=== PATIENT | female | born 1985 | race Caucasian/White ===

== ENCOUNTER → 2019-10-02 12:56 | Outpatient (CLI) | payer BC, SELFPAY ==
--- NOTE | ~2019-10-02 | US_ITS ---
EXAMINATION: US OB transvaginal DATE: 10/02/2019 13:32 INDICATION: First trimester dating TECHNIQUE: Real-time pelvic transabdominal and transvaginal ultrasound was performed. COMPARISON: None. FINDINGS: The uterus measures 9.6 x 6.3 x 6.8 cm. Again A yolk sac is identified. heart motion is identified measuring 163 beats per minute (bpm) by M-mode Doppler. The crown rump length me asures 1.7 cm , which correlates with an estimated gestational age of 8 weeks and 1 day(s) (+/-) 5 da y(s). The right ovary measures 3.2 x 2.0 x 3.0 cm. The left ovary measures 4.0 x 2.2 x 2.7 cm. There is nor mal vascular flow in the ovaries. There is no free fluid in the pelvis. IMPRESSION: 1. Live intrauterine with an estimated gestational age of 8 weeks and 1 day(s) (+/-) 5 day( s) and an estimated delivery date of 05/12/2020. Reviewed, dictated and finalized at location A. IMPRESSION: 1. Live intrauterine with an estimated gestational age of 8 weeks and 1 day(s) (+/-) 5 day(s) and an estimated delivery date of 05/12/2020.
== END ==
PROVIDERS: Visit Provider Obstetrics & Gynecology Gynecology
DX: Z36.9 Encounter for antenatal screening, unspecified (principal); Z3A.08 8 weeks gestation of pregnancy
CPT/HCPCS: 76817

== ENCOUNTER → 2019-12-14 15:32 | Outpatient (CLI) | payer BC, SELFPAY ==
--- NOTE | ~2019-12-14 | US_ITS ---
EXAMINATION: US OB >= 14 weeks Fetus DATE: 12/14/2019 16:10 INDICATION: Second trimester anatomic survey TECHNIQUE: Real-time ultrasound of the pelvis was performed. COMPARISON: None. FINDINGS: There is a single living fetus in vertex presentation. The placenta is anterior/fundal. heart r ate is 156 beats per minute (bpm). cardiac activity and movement are noted. The amniotic fluid index is subjectively normal. The following anatomy was identified as normal: 4 chamber heart 3 vessel cord cord insertion kidneys urinary bladder stomach spine diaphragm ventricles cisterna magna cerebellum The following biometric data were obtained: Biparietal diameter (BPD): 4.2 cm; head circumference (HC): 15.7 cm; abdominal circumference (AC): 13 .0 cm; femur length (FL): 2.7 cm. These measurements are concordant. Estimated weight is 241 g +/- 36 g, which correlates with the 40th percentile when 05/12/2020 is used as estimated date of delivery. As single measurements, these parameters are each equal to the following estimated gestational ages w ith ranges of +/- 2 standard deviations: BPD: 19 weeks 0 days ( 17 weeks 2 days - 20 weeks 5 days). HC: 18 weeks 4 days ( 17 weeks 1 days - 20 weeks 1 days). AC: 18 weeks 4 days ( 16 weeks 3 days - 20 weeks 4 days). FL: 18 weeks 2 days ( 16 weeks 4 days - 20 weeks 1 days). estimated gestational age based solely on measurements from this exam is 18 weeks 4 days +/- 1 weeks 2 days. IMPRESSION: 1. Single living fetus in vertex presentation. 2. Estimated weight is 241 g +/- 36 g, which correlates with the 40th percentile when 05/12/2020 is used as estimated date of delivery. Reviewed, dictated and finalized at location A. IMPRESSION: 1. Single living fetus in vertex presentation. 2. Estimated weight is 241 g +/- 36 g, which correlates with the 40th per centile when 05/12/2020 is used as estimated date of delivery.
== END ==
PROVIDERS: PCP Family Medicine; Visit Provider Nurse Practitioner
DX: Z36.9 Encounter for antenatal screening, unspecified (principal)
CPT/HCPCS: 76805

== ENCOUNTER 2020-02-15 09:01 | Outpatient (NON) | payer BC, SELFPAY ==
[2020-02-15 20:01] LABS: SARS-CoV-2 RNA PCR Negative
== END 2020-02-15 09:02 ==
PROVIDERS: PCP Family Medicine; Visit Provider Obstetrics & Gynecology Gynecology
DX: R68.89 Other general symptoms and signs (principal); Z20.828 Contact with and (suspected) exposure to other viral communicable diseases
CPT/HCPCS: 87635; C9803; U0003

== ENCOUNTER 2020-03-10 11:57 | Emergency (ER) | payer BC, SELFPAY ==
--- NOTE | ~2020-03-10 | XR_ITS ---
EXAMINATION: XR chest 1V portable DATE: 03/10/2020 13:15 INDICATION: Cough. TECHNIQUE: A single frontal view of the chest was obtained. COMPARISON: None. FINDINGS: The chest demonstrates clear lungs without pneumonia, pleural effusion, or pneumothorax. Th e heart size is normal. IMPRESSION: 1. No acute cardiopulmonary disease. Reviewed, dictated and finalized at location A. TRICAL LINESWORKER
[2020-03-10 12:04] VITALS: BP 114/74; PULSE 86; RESP 18; TEMP 36.7; O2SAT 100
--- NOTE | 2020-03-10 12:19 | ECG_ITS ---
Measurements Intervals [place] Rate: 81 P: 28 MO: 141 QRS: 61 QRSD: 86 T: 29 QT: 347 QTc: 404 Interpretive Statements SINUS RHYTHM NORMAL ECG Electronically Signed On 03-10-2020 12:42:59 HUC by Patrice Brewster D.O.
[2020-03-10 12:20] VITALS: BP 113/76; PULSE 85; RESP 18; O2SAT 100
[2020-03-10 12:25] VITALS: BP 106/66; BP 113/68; PULSE 86; PULSE 99
[2020-03-10 12:26] VITALS: BP 107/66; PULSE 87
[2020-03-10] MEDS: SODIUM CHLORIDE 0.9% IV 1,000 ML 999 ML IV CONT (13:02)
[2020-03-10 13:14] LABS: Basophils Percent Auto 0.3 % (0.2-1.2); Eosinophils Percent Auto 0.5 % (0-4.4); Hematocrit 31.5 % (37.0-47.0); Hemoglobin 10.5 g/dL (12.0-15.0); Immature Granulocyte Absolute 0.05 K/mm3 (0.00-0.031); Immature Granulocyte Percent A 0.6 % (0-0.5); Lymphocytes Absolute Auto 1.48 K/mm3 (0.9-3.2); Lymphocytes Percent Auto 16.9 % (18.3-44.2); Mean Corpuscular HGB Conc 33.3 g/dl (32-36); Mean Corpuscular Hemoglobin 31.6 pg (26-34); Mean Corpuscular Volume 94.9 fl (80-100); Mean Platelet Volume 10.1 fl (7.4-10.4); Monocytes Absolute Auto 0.6 K/mm3 (0.1-0.6); Monocytes Percent Auto 6.7 % (2.6-8.5); Neutrophils Absolute Auto 6.6 K/mm3 (1.3-6.7); Platelet Count Result 171 k/mm3 (150-375); Red Blood Count 3.32 M/mm3 (4.2-5.4); Red Cell Distribution Width 12.5 % (11.5-14.5); White Blood Count 8.8 K/mm3 (4.5-10.0)
[2020-03-10 13:32] LABS: Anion Gap 2 mmol/L (8-16); Blood Urea Nitrogen 8 mg/dL (7-17); Calcium 8.3 mg/dL (8.4-10.2); Carbon Dioxide 26 mmol/L (22-30); Chloride 105 mmol/L (98-107); Estimated CRCL calculation 116 ml/min; Estimated Glomerular Filt Rate > 60; Glucose 102 mg/dL (65-105); Potassium 4.1 mmol/L (3.4-5.0); Sodium 133 mmol/L (137-145)
[2020-03-10 13:42] VITALS: BP 107/61; PULSE 80; RESP 18; O2SAT 100
[2020-03-10 14:34] LABS: Add Urine Microscopic? NO; Appearance Urine Clear (Clear); Bacteria Urine Trace /hpf; Bilirubin Urine Negative (Negative); Blood Urine Negative (Negative); Color Urine Straw (Yellow); Glucose Urine UA Negative (Negative); Ketones Urine Negative (Negative); Leukocyte Esterase Ur Negative LEU/UL (Negative); Nitrate Urine Negative (Negative); Protein Urine Negative (Negative); RBC Urine 0-2 /hpf (0-2); Specific Grav Ur 1.005 (1.001-1.035); Squamous Epithelial Cell Urine Many /hpf (Few); Urobilinogen Urine Negative mg/dL (<2.0); WBC Urine 0-3 /hpf
[2020-03-10 14:40] VITALS: BP 97/67; PULSE 81; RESP 20; O2SAT 100
--- NOTE | 2020-03-10 15:23 | ED.GENADULT ---
HPI - General Adult General Chief complaint: Dizziness Stated complaint: LOW BP/ Time Seen by Provider: 03/10/20 12:32 Source: patient Mode of arrival: EMS Limitations: no limitations History of Present Illness HPI narrative: Patient a 34-year-old female who presents after near syncope today has felt lightheaded and dizzy with exertion is currently [address] Diaz also has a 21-kizba-wey at home patient notes that she felt like she was going to pass out today had tingling in the extremities as well and chest heaviness patient has had the symptoms on and off for the last several weeks did get worse and today patient presented per EMS after the near syncopal episode patient has had recent significant stressors such as the of her brother as well as her being at home with Covid and unable to help with other family members unable to help secondary to concerns for Covid the patient herself has no Covid symptoms denies any abdominal pain vaginal bleeding or discharge patient on arrival to the emergency department does not appear distressed. Patient was tried on Lexapro but did not like it only took 1 dose which was prescribed by her hydrometallurgical engineer. Patient has managed by Dr. Juarez Related Data Home Medications Medication Instructions Recorded Confirmed PNV cmb#95-ferrous fumarate-FA 1 tablet PO DAILY 01/12/19 01/15/19 [] ergocalciferol (vitamin D2) 50,000 unit PO WEEKLY 01/12/19 01/15/19 [Vitamin D2] Allergies Allergy/AdvReac Type Severity Reaction Status Date / Time No Known Allergies Allergy Verified 03/10/20 12:21 Review of Systems Review of Systems: All systems reviewed & are unremarkable except as noted in HPI and below PMFSH Social History Social History Smoking status: Never smoker Substance use: never Gender identity (if verbalized by the patient): Female Spiritual care concerns: No Exam Narrative: Exam Narrative: GENERAL: Well-appearing, well-nourished, and in no acute distress. HEAD: Normocephalic, atraumatic. EYES: PERRLA and EOMI. ENT: Nares clear, no rhinorrhea or epistaxis. Mucous membranes moist. CHEST: Clear to auscultation. No respiratory distress. No wheezes rales or rhonchi HEART: Regular rate and rhythm. No murmur heard. Normal peripheral pulses. ABDOMEN: Soft, nontender, distended. EXTREMITIES: Normal range of motion. No edema. SKIN: Warm, dry, no rash. NEURO: No focal deficits. Alert and oriented x3. Cranial nerves II through XII grossly intact PSYCH: Normal mood and affect. Course Course Emergency Course: Case discussed with patient's hydrometallurgical engineer who recommends sending her home for rest hydration feels comfortable with her going home given the findings and the history. Loom Fixer Supervisor would like the patient to continue her Lexapro. Patient hemodynamically stable patient with ABCs intact and vital signs intact and stable. Patient feeling better after 2 L of fluid in the ER. Patient given reasons to return Consultations Consultation #1: Case discussed with Dr. Juarez who would like the patient to continue her Lexapro notes that her office will continue to check on her feels comfortable with the patient to go home with continued rest and hydration Date: 03/10/20 Time: 15:31 Vital Signs Vital signs: Vital Signs Temperature 98.0 F 03/10/20 12:04 Pulse Rate 86 03/10/20 12:04 Respiratory Rate 18 03/10/20 12:04 Blood Pressure 114/74 03/10/20 12:04 Pulse Oximetry 100 03/10/20 12:04 Temperature 98.0 F 03/10/20 12:04 Pulse Rate 81 03/10/20 14:40 Respiratory Rate 20 03/10/20 14:40 Blood Pressure 97/67 L 03/10/20 14:40 Pulse Oximetry 100 03/10/20 14:40 Medical Decision Making MDM Narrative Medical decision making narrative: Patient with significant stressors will be sent home after hydration and evaluation which did not reveal high r
[2020-03-10 22:22] LABS: SARS-CoV-2 RNA PCR Negative
== END 2020-03-10 15:47 | disposition home or self-care (01) ==
PROVIDERS: Emergency Medicine Emergency Medical Services; Emergency Provider Emergency Medicine; PCP Family Medicine
DX: O26.893 Other specified pregnancy related conditions, third trimester (principal); R55 Syncope and collapse; Z20.822 Contact with and (suspected) exposure to COVID-19; Z3A.31 31 weeks gestation of pregnancy
CPT/HCPCS: 36415; 71045; 80048; 81003; 85025; 93005; 96360; 99284; C9803; J7030; U0003

== ENCOUNTER 2020-04-26 00:01 | Observation (INO) | payer BC, SELFPAY ==
--- NOTE | 2020-05-05 09:49 | PM.OBTRLD ---
OB - Triage/Final Diagnosis Visit Information Reason for evaluation: other (leaking vaginal fluid) Comments/Additional reasons for admission: I have assessed the risk for this patient, Quiana Calvillo, and determined that she would benefit from observation care.
== END 2020-04-26 02:25 | disposition home or self-care (01) ==
PROVIDERS: Admitting Provider Obstetrics & Gynecology Gynecology; PCP Family Medicine; Visit Provider Obstetrics & Gynecology Gynecology
DX: O42.12 Full-term premature rupture of membranes, onset of labor more than 24 hours following rupture (principal); Z3A.37 37 weeks gestation of pregnancy
CPT/HCPCS: 84112; G0378; G0379

== ENCOUNTER 2020-05-01 16:45 | Inpatient (IN) | payer BC, SELFPAY ==
[2020-05-01] VITALS (16 sets, daily range): BP systolic 99–113; BP diastolic 64–79; PULSE 70–92; TEMP 37–37.1; BMI 24.4
--- NOTE | 2020-05-01 17:49 | LDADM ---
This patient, Quiana Calvillo, was admitted to Labor/Delivery/Recovery 107 on 05/01/20 at 16:45. Plans for labor, pain management and were discussed with patient. Patient/family oriented to hospital policies and general routines including ID bracelet, bed and alarms, visiting hours, pain management, procedures, bathroom and other care routines, personal items, smoking policy, room service/diet and guest tray routines, infant security routines, and visiting hours. Patient/Family are encouraged to report perceived risks to care and to ask questions if they do not understand what they are told or what they should do. See OBIX for further documentation.
[2020-05-01 17:51] LABS: Basophils Percent Auto 0.4 % (0.2-1.2); Eosinophils Percent Auto 0.4 % (0-4.4); Hematocrit 38.9 % (37.0-47.0); Hemoglobin 13.4 g/dL (12.0-15.0); Immature Granulocyte Absolute 0.04 K/mm3 (0.00-0.031); Immature Granulocyte Percent A 0.4 % (0-0.5); Lymphocytes Absolute Auto 2.33 K/mm3 (0.9-3.2); Lymphocytes Percent Auto 24.6 % (18.3-44.2); Mean Corpuscular HGB Conc 34.4 g/dl (32-36); Mean Corpuscular Hemoglobin 31.9 pg (26-34); Mean Corpuscular Volume 92.6 fl (80-100); Mean Platelet Volume 10.8 fl (7.4-10.4); Monocytes Absolute Auto 0.7 K/mm3 (0.1-0.6); Monocytes Percent Auto 6.9 % (2.6-8.5); Neutrophils Absolute Auto 6.4 K/mm3 (1.3-6.7); Neutrophils Percent Auto 67.3 % (45.5-73.1); Platelet Count Result 230 k/mm3 (150-375); Red Cell Distribution Width 13.1 % (11.5-14.5); White Blood Count 9.5 K/mm3 (4.5-10.0)
--- NOTE | 2020-05-01 17:52 | PC.NURSE ---
When pt asked the suicide precaution questions she began to cry and stated her brother committed suicide in Oct. She says she has talked to about being very depressed and anxious. She was going to start medication but didn't. Talked in length to pt and her about post depression. Educated both of them on looking for signs and symptoms and to reach out to right away if she is having any thought of harming herself or the baby. Pt states she is overwhelmed with having a 15mo at home and delivering today. seems very supportive and states they have two counselors that she sees.
[2020-05-01] MEDS: LACTATED RINGERS 1,000 ML 125 ML IV CONT (19:11)
[2020-05-01] MEDS: OXYTOCIN 30 UNITS/NS 500 ML 30 UNITS/500 ML BAG IV CONT (19:12)
--- NOTE | 2020-05-01 23:49 | WPDANESEPPF ---
Anes - Initial Pre Proc Eval Procedure: labor epidural Date/Time: 05/01/20 23:49 Surgeon: Henny Juarez MD Pre Op Diagnosis: labor pain Pre Op Diagnosis: Induction of Labor Patient Data Age: 34 Gender: F Height: 1.63 m Weight: 64.56 kg Last Vital Signs Temp 37.0 C 05/01/20 20:59 Pulse 71 05/01/20 23:30 BP 110/71 05/01/20 23:30 Allergies Allergy/AdvReac Type Severity Reaction Status Date / Time No Known Allergies Allergy Verified 04/14/20 12:39 Home Medications Medication Instructions Recorded Confirmed Type PNV cmb#95-ferrous fumarate-FA 1 tablet PO DAILY 01/12/19 01/15/19 History [] ergocalciferol (vitamin D2) 50,000 unit PO WEEKLY 01/12/19 01/15/19 History [Vitamin D2] ferrous sulfate 325 mg PO BID 04/14/20 04/14/20 History Laboratory Tests 05/01/20 05/01/20 05/01/20 17:41 17:41 17:42 WBC 9.5 K/mm3 K/mm3 (4.5-10.0) RBC 4.20 M/mm3 M/mm3 (4.2-5.4) Hgb 13.4 g/dL g/dL (12.0-15.0) Hct 38.9 % % (37.0-47.0) MCV 92.6 fl fl (80-100) MCH 31.9 pg pg (26-34) MCHC 34.4 g/dl g/dl (32-36) RDW 13.1 % % (11.5-14.5) Plt Count 230 k/mm3 k/mm3 (150-375) MPV 10.8 fl H fl (7.4-10.4) Immature Gran % (Auto) 0.4 % % (0-0.5) Neut % (Auto) 67.3 % % (45.5-73.1) Lymph % (Auto) 24.6 % % (18.3-44.2) [place] % (Auto) 6.9 % % (2.6-8.5) Eos % (Auto) 0.4 % % (0-4.4) Baso % (Auto) 0.4 % % (0.2-1.2) Lymph # (Auto) 2.33 K/mm3 K/mm3 (0.9-3.2) [place] # (Auto) 0.7 K/mm3 H K/mm3 (0.1-0.6) Eos # (Auto) 0.0 K/mm3 K/mm3 (0-0.3) Baso # (Auto) 0.0 K/mm3 K/mm3 (0.0-0.1) Abs Immat Gran (auto) 0.04 K/mm3 H K/mm3 (0.00-0.031) Absolute Neuts (auto) 6.4 K/mm3 K/mm3 (1.3-6.7) Absolute Nucleated RBC 0.0 K/mm3 K/mm3 (0.0-0.012) Nucleated RBC % 0.0 % % (0.0-0.2) RPR Pending Blood Type A Positive Antibody Screen Negative Patient hx anesthesia problems: none Family hx anesthesia problems: none [facility] Past Medical History Medical History (Updated 05/01/20 @ 23:50 by Jhonatan Mcneil DO) Anemia Anxiety Lyme disease 2005 PCOS (polycystic ovarian syndrome) Family History Family History (Updated 04/14/20 @ 12:42 by Ryan Mendosa RN) Mother Pancreas divisum Anxiety Social History Social History Smoking status: Never smoker Substance use: never Gender identity (if verbalized by the patient): Female Spiritual care concerns: No Anes - Eval Final PreProcedure Day of Procedure 05/01/20 23:49 Patient weight: normal ASA classification: III Anesthesia type and monitoring: regional epidural Informed Consent: The patient's anesthetic plan and its attendant risks and benefits were discussed with the patient/family/POA. Questions were solicited and answers provided to the satisfaction of the patient/family/POA.
[2020-05-02] VITALS (100 sets, daily range): BP systolic 37–133; BP diastolic 17–112; PULSE 62–149; RESP 16–20; TEMP 36.3–37.6; O2SAT 97–100
[2020-05-02] MEDS: LACTATED RINGERS 1,000 ML 125 ML IV CONT ×3 (01:58→05:06)
--- NOTE | 2020-05-02 04:37 | WPDOBADMIT ---
Obstetrics - Admit Note Admission Note: record reviewed. No pertinent additions to the history and/or any subsequent changes in the physical findings that are not consistent with the expected course of the were found. Additions to the history and/or subsequent changes in the physical findings follow. Here from office with 5 day hx of decreased movement. Rec. MIL. Cervix now 5/70/-2 AROM with clear fluid. FHTs reactive.
[2020-05-02 06:50] LABS: Rapid Plasma Reagin Non-Reactive (NonReactive)
--- NOTE | 2020-05-02 07:42 | P.PCNOB_ITS ---
OB - Delivery Note Procedure Delivery date: 05/04/20 Procedure: events: Labor Induction Intrapartal events: None Delivery monitor: external FHT and external uterine Route of delivery: Laceration Description: None Specimen: Yes (marginal insertion of placenta) Quantitative Blood Loss (ml): 75 Anesthesia type: Epidural Disposition: floor [place] Baby Date of : 05/02/20 Weeks of gestation at delivery: 38 gender: Male presentation: vertex position: Right Occiput Anterior Placenta delivery description: Spontaneous cord vessel description: 3 Vessels score one minute: 9 score five minutes: 9
--- NOTE | 2020-05-02 07:46 | PM.OBDSVD ---
DS: Admitting Diagnosis Admitting Diagnosis Admitting Diagnosis: decreased FM 38 4/7 wks DS: Discharge Diagnosis Discharge Diagnosis (1) (normal spontaneous vaginal delivery): Code(s): O80 - Encounter for full-term uncomplicated delivery Status: Acute OB - DS: Summary OB Procedures : Ultrasound OB Procedures Intrapartum: Spontaneous Vag Delivery OB Procedures: : None Peripartum Data Delivery Method: Natural Vaginal Laceration Description: None complications: none Status at Discharge Functional status at discharge: independent ambulation Overall status at discharge: patient is progressing back to baseline Time Spent with Patient Time attestation: Total time spent providing and/or coordinating discharge services: DS: Data Data Completed and Pending Labs on day of discharge: Labs from last 24 hours 05/01/20 05/01/20 05/01/20 17:42 17:41 17:41 WBC 9.5 RBC 4.20 Hgb 13.4 Hct 38.9 MCV 92.6 MCH 31.9 MCHC 34.4 RDW 13.1 Plt Count 230 MPV 10.8 H Immature Gran % (Auto) 0.4 Neut % (Auto) 67.3 Lymph % (Auto) 24.6 [place] % (Auto) 6.9 Eos % (Auto) 0.4 Baso % (Auto) 0.4 Lymph # (Auto) 2.33 [place] # (Auto) 0.7 H Eos # (Auto) 0.0 Baso # (Auto) 0.0 Abs Immat Gran (auto) 0.04 H Absolute Neuts (auto) 6.4 Absolute Nucleated RBC 0.0 Nucleated RBC % 0.0 RPR Non-reactive Blood Type A Positive Antibody Screen Negative Discharge Plan Discharge Attending physician on discharge: Henny Juarez Discharging Clinician: Carl Moctezuma Anticipated Discharge Date/Time: 05/04/20 07:46 Patient Disposition: Home, Self-Care Activity: may shower and pelvic rest Diet: regular Discharge Instructions: Education: Mom and Baby Guide Given to: Mother Follow-Up: Call your delivering provider's office for an appointment to be seen in: 6 Weeks Mom and baby should come to the [facility] for the follow-up appointment. Appointment Date/Time: May 06, 2020 at 10:00 am What to expect at your follow-up visit: Physical Assessment Call [phone] if you are unable to keep your appointment time. BREAST CARE: * Wear a snug supportive bra. * For engorgement discomfort: Breast Feeding: * Apply warm moist washcloths * Express milk as needed to relieve engorgement * Wear loose clothing * For sore nipples: * Identify correct latch-on * Apply warm moist washcloths before and after nursing * Air dry nipples after nursing * May apply Lansinoh cream to nipples EPISIOTOMY/PERINEAL CARE: * Until bleeding stops, use your hieu bottle after urinating * Change your pad frequently throughout the day * No tub baths until seen by your physician - You may shower ACTIVITY: * Rest as much as possible. * Do not exercise or lift anything heavier than your baby (such as laundry or other children.) * Avoid stairs or driving as much as possible. * Do not put anything into the vagina. No douching, tampons, or sexual activity until seen by physician. NOTIFY PHYSICIAN IF YOU HAVE ANY QUESTIONS OR IF ANY OF THE FOLLOWING SYMPTOMS OCCUR: * If your perineum becomes red, swollen, or more painful than what you have experienced in the hospital. * If your vaginal bleeding becomes foul smelling. * If your vaginal bleeding becomes more heavy than a period or if your bleeding changes from pink to bright red. However, you may pass an occasional walnut-sized clot once or twice for the first week . * If you experience a sharp, shooting pain in you calves. * If you discover a hard, reddened area on your breast or if you experience flu-like symptoms. DIET: * Eat regular, well-balanced meals. * Drink plenty of fluids daily. If , drink to thirst. Patient Instructions: Antibiotic Form S
[2020-05-02] MEDS: OXYTOCIN 30 UNITS/NS 500 ML 30 UNITS/500 ML BAG 125 UNITS IV CONT (08:15)
[2020-05-02] MEDS: IBUPROFEN 600 MG TABLET (10:46)
[2020-05-02] MEDS: WITCH HAZEL 40 PADS 1 PAD (10:47)
--- NOTE | 2020-05-02 13:22 | OBPPTRN ---
Patient transferred to post room # 287 via wheelchair. Support person present. Oriented to unit, room, information board, rooming in, admission packet and security measures. Patient verbalizes understanding.
--- NOTE | 2020-05-02 15:55 | PC.NURSE ---
Consulted with patient, reports infant has fed first two feedings and is now sleepy. Mother reports pain to left nipple, small blister noted. Reviewed nipple care, lanolin provided. Reviewed feeding cues, frequencies, duration of feedings, feeding elimination flow sheet, and signs of adequate intake. Demonstrated stimulation techniques to wake for feeding. Assisted with to breast. Reviewed positioning/alignment in cross cradle, holding breast in U hold and guided asymmetrical latch on. was able to latch correctly within a few attempts. nursed eagerly, with steady draws and frequent swallowing noted. Reviewed signs of a correct latch, effective nursing and suck swallow ratio. was able to maintain latch. Mother reported tenderness at times, had slipped to shallow latch. Demonstrated how to adjust latch more deeply while feeding. Mother quickly reports she can feel is latched more deeply and has minimal tenderness. Suggested to stimulate infant while feeding to keep awake and nursing effectively for increased stimulation and increased intake. Instructed mother to call out for RN assistance if she is unable to latch infant for feeding or she has discomfort with nursing. Instructed feeding should be initiated three hours from start of last feeding or if feeding cues are noted before. Mother voiced understanding of information shared.
[2020-05-02] MEDS: DOCUSATE SODIUM 100 MG CAPSULE PO (16:58)
[2020-05-02] MEDS: IBUPROFEN 600 MG TABLET PO ×2 (16:59→22:37)
[2020-05-02] MEDS: DIBUCAINE 1% OINTMENT 30 GM TUBE 1 APPLIC TOPICAL (16:59)
[2020-05-02] MEDS: ACETAMINOPHEN 325 MG TABLET 650 MG PO (19:10)
[2020-05-03] MEDS: IBUPROFEN 600 MG TABLET PO ×2 (04:04→10:27)
[2020-05-03] MEDS: ACETAMINOPHEN 325 MG TABLET 650 MG PO (04:05)
[2020-05-03 04:21] VITALS: BP 93/63; PULSE 70; RESP 16; TEMP 36.6; O2SAT 100
[2020-05-03 05:22] LABS: Hematocrit 35.6 % (37.0-47.0); Hemoglobin 11.7 g/dL (12.0-15.0)
--- NOTE | 2020-05-03 08:47 | PM.OBPNVD ---
OB - PN: Subj Subjective Date/time seen: 05/03/20 08:47 doing well no complaints OB - PN: Obj Data Labs CBC & Chem 7: 05/03/20 04:11 Labs: Laboratory Results - last 24 hr 05/03/20 04:11 Hgb 11.7 L Hct 35.6 L OB - PN A/P Assessment and Plan (1) (normal spontaneous vaginal delivery): Code(s): O80 - Encounter for full-term uncomplicated delivery Status: Acute Assessment and Plan: d/c home Time Spent With Patient Time: Total time spent is greater than 50% in coordination of care (as documented) at patient's floor/unit and/or counseling patient: Review of Systems Review of Systems: All systems reviewed & are unremarkable except as noted in HPI and below Exam Narrative: Exam Narrative: ff below umbilicus
--- NOTE | 2020-05-03 09:05 | WPDANLDPN2 ---
Anes-Prog Note L&D Date/Time: 05/03/20 09:05 Comfortable throughout: labor and delivery Neuraxial method: epidural Epidural/Spinal procedure site: clean & non-tender Neuro status: Neuro function grossly intact. Cardiovascular status: normal Respiratory status: normal Airway patency: baseline Mental status: baseline Post-Op hydration status: normal Vital Signs: Last Vital Signs Temp 36.6 C 05/03/20 04:21 Pulse 70 05/03/20 04:21 Resp 16 05/03/20 04:21 BP 93/63 L 05/03/20 04:21 Pulse Ox 100 05/03/20 04:21 Pain score (VAS): 03/09 Post-procedural complaints: none Patient feedback: Patient satisfied with anesthetic care.
[2020-05-03 10:25] VITALS: BP 92/63; PULSE 84; RESP 18; TEMP 37.3; O2SAT 98
[2020-05-03] MEDS: MULTIVIT/MIN/PREN/FOL AC/IRON TABLET 1 TAB PO (10:27)
[2020-05-06 09:42] VITALS: BP 104/64; PULSE 88; RESP 20; TEMP 36.7; O2SAT 98
== END 2020-05-03 14:12 | disposition home or self-care (01) | DRG 807 ==
LOC: ANHLDR 05-05 20:17 → ANHOB2 05-05 20:17
PROVIDERS: Admitting Provider Obstetrics & Gynecology Gynecology; PCP Family Medicine; Visit Provider Obstetrics & Gynecology
DX: O43.123 Velamentous insertion of umbilical cord, third trimester (principal); Z37.0 Single live birth; Z3A.38 38 weeks gestation of pregnancy; O99.02 Anemia complicating childbirth; D64.9 Anemia, unspecified; O99.344 Other mental disorders complicating childbirth; F41.9 Anxiety disorder, unspecified; O99.284 Endocrine, nutritional and metabolic diseases complicating childbirth; E28.2 Polycystic ovarian syndrome; O36.8330 Maternal care for abnormalities of the fetal heart rate or rhythm, third trimester, not applicable or unspecified
CPT/HCPCS: 36415; 85014; 85018; 85025; 86592; 86850; 86900; 86901; 88307; A9270; J2590; J7120

== ENCOUNTER 2020-09-29 12:00 | Emergency (ER) | payer BC, SELFPAY ==
[2020-09-29 12:11] VITALS: BP 100/67; PULSE 76; RESP 16; TEMP 36.6; O2SAT 100
--- NOTE | 2020-09-29 12:17 | ED.GENADULT ---
HPI - General Adult General Chief complaint: Upper Respiratory Infection Stated complaint: sore throat/body aches/chi Source: patient Mode of arrival: ambulatory Limitations: no limitations History of Present Illness HPI narrative: Pleasant 35 y/o female. PMHx: None reported. Presents to [facility] today with acute complaints of nasal discharge, sore throat, and 'voice hoarseness' for the past 3 days. Pt states to have been working at a [employer] over the past weekend, was 'yelling a lot', and her s/s began shortly thereafter. No dyspnea, dysphagia, involuntary drooling. No fever, chills. No CHI, body aches, Otalgia. No cough, chest congestion, N/V. She reports to have tested negative for Covid 2 weeks ago at work, and has since been vaccinated. No new or active Covid concern. She reports sub-therapeutic relief to home OTC remedies. She is w/o additional acute c/o upon PE. Related Data Home Medications Medication Instructions Recorded Confirmed ergocalciferol (vitamin D2) 50,000 unit PO WEEKLY 01/12/19 05/02/20 [Vitamin D2] myimvl92-deep fum-folic ac-om3 pkg PO 09/29/20 09/29/20 [Daily ] Allergies Allergy/AdvReac Type Severity Reaction Status Date / Time No Known Allergies Allergy Verified 04/14/20 12:39 Review of Systems Review of Systems: CONSTITUTIONAL: Denies fever, chills, sweats. EYES: Denies visual changes, redness, discharge. ENT: Positive rhinorrhea, congestion, sore throat. No otalgia. CARDIOVASCULAR: Denies chest pain, palpitations, edema. RESPIRATORY: Denies dyspnea, wheezing, cough GASTROINTESTINAL: Denies abdominal pain, nausea, vomiting, diarrhea. GENITOURINARY: Denies dysuria, hematuria, abnormal discharge SKIN: Denies rash or itching. MUSCULOSKELETAL: Denies acute back pain, joint pain, or myalgia. NEUROLOGIC: Denies numbness, or focal weakness. PSYCHIATRIC: Denies anxiety or depression. All systems reviewed & are unremarkable except as noted in HPI and below PMFSH Past Medical History Medical History Anemia Anxiety Lyme disease 2005 PCOS (polycystic ovarian syndrome) Family History Family History Mother Pancreas divisum Anxiety Social History Social History Smoking status: Never smoker Substance use: never Gender identity (if verbalized by the patient): Female Spiritual care concerns: No Exam Narrative: GENERAL: This is a well-nourished, well-developed adult, in no apparent distress. HEAD: normocephalic, atraumatic. EYES: PERRL. Sclera clear/white. EARS: External ears normal, auditory canals clear and without drainage, TMs normal. NOSE: External nose normal. Positive Rhinorrhea, no obstruction, nares patent. THROAT: Mucous membranes moist, posterior pharynx is erythematous, minimal white exudate. No airway swelling or distress. NECK: Neck supple, non-tender without lymphadenopathy, masses or thyromegaly. CARDIOVASCULAR: Regular rate and rhythm without murmurs, gallops, or rubs. RESPIRATORY: Clear to auscultation. Breath sounds equal bilaterally. No wheezes, rales, or rhonchi. No stridor. GASTROINTESTINAL: Abdomen soft, non-tender, nondistended. Bowel sounds are active. No guarding. SKIN: warm, intact with no suspicious lesions or rash, good texture and turgor. NEURO: No focal neurologic deficits. EXTREMITIES: Negative. Course Course Emergency Course: -35 y/o female. -PMHx non-contributory. 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 -No dyspnea, airway swelling, dysphagia, involuntary drooling, or stridor. -She reports no Covid concerns and recent negative Covid 19 testing. -Proceed with Strep Throat swab, R/O Streptococcal pharyngitis. Vital Signs Vital signs: Vital Signs Temperature 36.6 C 09/29/20 12
== END 2020-09-29 12:36 | disposition home or self-care (01) ==
PROVIDERS: Emergency Provider Nurse Practitioner Adult Health; PCP Family Medicine
DX: J02.9 Acute pharyngitis, unspecified (principal); J06.9 Acute upper respiratory infection, unspecified; E28.2 Polycystic ovarian syndrome
CPT/HCPCS: 87081; 87880; 99213; G0463

== ENCOUNTER → 2022-03-03 12:56 | Outpatient (CLI) | payer BC, SELFPAY ==
--- NOTE | ~2022-03-03 | US_ITS ---
US OB limited DATE: 03/03/2022 13:26 INDICATION: Subchorionic hematoma TECHNIQUE: Real-time imaging, color flow imaging, Doppler analysis COMPARISON: None FINDINGS: The uterus measures 14 cm height, 8.7 cm AP and 12.0 cm transverse dimension. Live singleto n intrauterine gestation is identified. heart rate of 163 bpm. Posterior placenta. No subchorionic hematoma is detected. Right ovary measures 2.2 x 1.9 x 1.9 cm. Left ovary measures 2.6 x 1.4 x 2.4 cm with a 1.4 cm cyst. There is vascular flow to both ovaries. No pelvic mass or abnormal free pelvic fluid collection is detected. IMPRESSION: Live linares intrauterine gestation; no subchorionic hematoma is detected Reviewed, dictated and finalized at [facility]. Reviewed, dictated and finalized at location [facility]. LE [facility]ELER
== END ==
PROVIDERS: PCP Family Medicine; Visit Provider Obstetrics & Gynecology Gynecology
DX: O36.8920 Maternal care for other specified fetal problems, second trimester, not applicable or unspecified (principal); Z3A.00 Weeks of gestation of pregnancy not specified
CPT/HCPCS: 76815

== ENCOUNTER → 2022-07-13 13:20 | Outpatient (CLI) | payer BC, SELFPAY ==
--- NOTE | ~2022-07-13 | US_ITS ---
EXAMINATION: US OB follow up DATE: 07/13/2022 13:50 INDICATION: Choroid plexus cyst. TECHNIQUE: Real-time ultrasound of the pelvis was performed. COMPARISON: Ultrasound 03/03/2022 FINDINGS: There is a single living fetus in vertex presentation. The placenta is posterior, 4.3 cm from the ce rvix. The cervical length is 4.5 cm on transabdominal images, which is normal. No choroid plexus cyst is identified. heart rate is 134 beats per minute (bpm). The amniotic fluid index is 21.5 cm, which is normal. The following biometric data were obtained: Biparietal diameter (BPD): 8.6 cm; head circumference (HC): 32.0 cm; abdominal circumference (AC): 30 .1 cm; femur length (FL): 6.3 cm. These measurements are concordant. Estimated weight is 2287 g +/- 343 g, which correlates with the 86th percentile when 09/05/22 is used as estimated date of delivery. As single measurements, these parameters are each equal to the following estimated gestational ages: BPD: 34 weeks 4 days. HC: 36 weeks 1 days. AC: 34 weeks 0 days. FL: 32 weeks 3 days. estimated gestational age based solely on measurements from this exam is 34 weeks 2 days +/- 2 weeks 3 days. IMPRESSION: 1. Single living fetus in vertex presentation. 2. Estimated weight is 2287 g +/- 343 g, which correlates with the 86th percentile when 09/05/22 is used as estimated date of delivery. 3. No choroid plexus cyst identified. Reviewed, dictated and finalized at location A.
== END ==
PROVIDERS: PCP Obstetrics & Gynecology Gynecology; Visit Provider Obstetrics & Gynecology Gynecology
DX: Z36.9 Encounter for antenatal screening, unspecified (principal); Z3A.34 34 weeks gestation of pregnancy
CPT/HCPCS: 76816

== ENCOUNTER 2022-08-29 16:42 | Inpatient (IN) | payer BC, SELFPAY ==
[2022-08-29] VITALS (25 sets, daily range): BP systolic 82–114; BP diastolic 47–75; PULSE 77–95; RESP 16–18; TEMP 36.8–37.1; BMI 25.7
--- NOTE | 2022-08-29 17:07 | P.PNAN_ITS ---
Anes - Eval Pre Procedure Procedure: labor epidural Date/Time: 08/29/22 17:07 Pre Op Diagnosis: IOL Patient Data Age: 36 Gender: F Height: Weight: Allergies Allergy/AdvReac Type Severity Reaction Status Date / Time No Known Allergies Allergy Verified 08/06/22 12:35 Home Medications Medication Instructions Recorded Confirmed Type ergocalciferol (vitamin D2) 1,250 50,000 unit PO WEEKLY 01/12/19 08/06/22 History mcg (50,000 unit) capsule (Vitamin D2) vits 75-iron 28 mg-folic 1 pkg PO DAILY 09/29/20 08/06/22 History acid 800 mcg-omega3 440 mg oral pack loratadine 5 mg-pseudoephedrine ER 1 tablet PO Q12H #30 tabs 04/07/22 04/12/22 Rx 120 mg tablet,extended release,12hr (Claritin-D 12 Hour) Patient hx anesthesia problems: none Family hx anesthesia problems: none Results Review: All pre-operative results and documents have been reviewed as part of the pre- operative evaluation. [facility] Past Medical History Medical History Anemia Anxiety Lyme disease 2005 PCOS (polycystic ovarian syndrome) Family History Family History Mother Pancreas divisum Anxiety Social History Social History Smoking status: Never smoker Substance use: never Lack of Transportation: No Lack of Food: Never True Current Housing: I Have Housing Concerned About Future Housing: No Difficulty Paying Gas/Electric Bills: No Difficulty Paying for Meds: No Currently Unemployed: No Education: Bachelor's Degree Difficulty w/ Childcare or Family Care: No Living arrangements: with family Gender identity (if verbalized by the patient): Female Spiritual care concerns: No Exam Day of Procedure 08/29/22 17:07 Patient weight: overweight Heart: regular rate and rhythm Lungs: clear to auscultation Airway: Mallampati scale Neurological: alert and oriented
--- NOTE | 2022-08-29 17:24 | LDADM ---
This patient, Quiana Calvillo, was admitted to Labor/Delivery/Recovery 107 on 08/29/22 at 16:42. Plans for labor, pain management and were discussed with patient. Patient/family oriented to hospital policies and general routines including ID bracelet, bed and alarms, visiting hours, pain management, procedures, bathroom and other care routines, personal items, smoking policy, room service/diet and guest tray routines, infant security routines, and visiting hours. Patient/Family are encouraged to report perceived risks to care and to ask questions if they do not understand what they are told or what they should do. See OBIX for further documentation.
[2022-08-29 17:59] LABS: Basophils Percent Auto 0.4 % (0.2-1.2); Eosinophils Percent Auto 0.3 % (0-4.4); Hematocrit 35.5 % (37.0-47.0); Hemoglobin 11.9 g/dL (12.0-15.0); Immature Granulocyte Absolute 0.04 K/mm3 (0.00-0.031); Immature Granulocyte Percent A 0.4 % (0-0.5); Lymphocytes Absolute Auto 1.98 K/mm3 (0.9-3.2); Lymphocytes Percent Auto 20.2 % (18.3-44.2); Mean Corpuscular HGB Conc 33.5 g/dl (32-36); Mean Corpuscular Hemoglobin 30.6 pg (26-34); Mean Corpuscular Volume 91.3 fl (80-100); Mean Platelet Volume 10.8 fl (7.4-10.4); Monocytes Absolute Auto 0.6 K/mm3 (0.1-0.6); Monocytes Percent Auto 5.8 % (2.6-8.5); Neutrophils Absolute Auto 7.1 K/mm3 (1.3-6.7); Neutrophils Percent Auto 72.9 % (45.5-73.1); Platelet Count Result 219 k/mm3 (150-375); Red Blood Count 3.89 M/mm3 (4.2-5.4); White Blood Count 9.8 K/mm3 (4.5-10.0)
[2022-08-29] MEDS: AMPICILLIN 2 GM/NS 100 ML 2 GM/100 ML BAG IVPB (18:52)
[2022-08-29] MEDS: OXYTOCIN 30 UNITS/NS 500 ML 30 UNITS/500 ML BAG IV CONT (18:53)
[2022-08-29] MEDS: LACTATED RINGERS 1,000 ML 125 ML IV CONT (18:53)
[2022-08-29] MEDS: AMPICILLIN 1 GM/NS 50 ML 1 GM/50 ML BAG IVPB (23:10)
[2022-08-30] VITALS (300 sets, daily range): BP systolic 65–130; BP diastolic 40–94; PULSE 25–215; RESP 16–18; TEMP 36.3–37; O2SAT 74–100
[2022-08-30] MEDS: CALCIUM CARBONATE (TUMS) 500 MG (200 MG ELEMENTAL) 400 MG PO (03:21)
[2022-08-30] MEDS: LACTATED RINGERS 1,000 ML 125 ML IV CONT ×4 (03:21→16:16)
[2022-08-30] MEDS: AMPICILLIN 1 GM/NS 50 ML 1 GM/50 ML BAG IVPB ×4 (03:21→15:03)
--- NOTE | 2022-08-30 08:04 | WPDOBADMIT ---
Obstetrics - Admit Note Admission Note: record reviewed. No pertinent additions to the history and/or any subsequent changes in the physical findings that are not consistent with the expected course of the were found. Additions to the history and/or subsequent changes in the physical findings follow. patient is admitted for medical induction of labor at 39 and 2/7 weeks. Patient received Pitocin on and off throughout the night. heart tones occasionally to category 2 and Pitocin was turned off. Patient did progress to 3cm. On my exam patient is 4cm/70/-2. Artificial rupture of membranes with clear fluid noted. Patient plans to proceed with epidural and will start Pitocin if needed. heart tones were category 1 currently
--- NOTE | 2022-08-30 15:56 | PC.NURSE ---
1308 - Introductions were made and mother shared how she would like to feed her baby with along with her past experience. Encouraged mother to place [id number] until the first feeding if infant is stable and to wait on the weight to help stabilize, reduce stress, and improve latching by allowing infant time to explore parent's chest using instincts. Education was shared on how to protect her milk supply with latching and/or using hand expression to remove milk if infant doesn't latch in the first hour, then finger feed colostrum to the to preserve breast focus. Resources provided with educational trifold for bonding and feeding . Parents voiced understanding of information and to call if there is a request for assistance.
[2022-08-30] MEDS: SODIUM CHLORIDE 0.9% IV 300 ML 180 ML I-UTERINE (16:17)
[2022-08-30 17:14] LABS: Rapid Plasma Reagin Non-Reactive (NonReactive)
--- NOTE | 2022-08-30 18:26 | P.PCNOB_ITS ---
OB - Delivery Note Procedure Delivery date: 08/30/22 Procedure: Induction method: AROM and Per Pitocin Protocol Delivery monitor: External FHT and Internal Uterine Route of delivery: Episiotomy description: None Laceration Description: None Specimen: Yes (placenta) Quantitative Blood Loss (ml): 250 Anesthesia type: Epidural Disposition: Floor [place] Baby Date of : 08/30/22 Weeks of gestation at delivery: 39 gender: Male presentation: vertex position: Right Occiput Anterior Placenta delivery description: Spontaneous Cord Vessel Description: 3 Vessels and Nuchal Cord (x 1 delivered through) score one minute: 8 score five minutes: 9
--- NOTE | 2022-08-30 18:28 | PM.OBDSVD ---
DS: Admitting Diagnosis Discharge Date 08/31/22 Admitting Diagnosis MIL at 39 2/7 wks DS: Discharge Diagnosis Discharge Diagnosis (1) (normal spontaneous vaginal delivery): Code(s): O80 - Encounter for full-term uncomplicated delivery Status: Acute OB - DS: Summary OB Procedures : Ultrasound OB Procedures Intrapartum: Spontaneous Vag Delivery OB Procedures: : None Peripartum Data Delivery Method: Natural Vaginal Laceration Description: None complications: none Status at Discharge Functional status at discharge: independent ambulation Overall status at discharge: patient is progressing back to baseline Time Spent with Patient Time attestation: Total time spent providing and/or coordinating discharge services: DS: Data Data Completed and Pending Labs on day of discharge: Labs from last 24 hours 08/29/22 17:10 RPR Non-reactive Blood Type A Positive Antibody Screen Negative Discharge Plan Discharge Attending physician on discharge: Henny Juarez Consulting providers: Heather Dallas; Marium Chun Discharging Clinician: Alvaro Jaime Anticipated Discharge Date/Time: 09/01/22 18:30 Patient Disposition: Home, Self-Care Activity: may shower and pelvic rest Diet: regular Discharge Instructions: Education: Mom and Baby Guide Given to: Mother Follow-Up: Call your delivering provider's office for an appointment to be seen in: 6 Weeks Mom and baby should come [facility] the [facility] for the follow-up appointment. Appointment Date/Time: September 03, 2022 at 11:00 am What to expect at your follow-up visit: Blood Pressure Check Call [phone] if you are unable to keep your appointment time. BREAST CARE: * Wear a snug supportive bra. * For engorgement discomfort: Breast Feeding: * Apply warm moist washcloths * Express milk as needed to relieve engorgement * Wear loose clothing * For sore nipples: * Identify correct latch-on * Apply warm moist washcloths before and after nursing * Air dry nipples after nursing * May apply Lansinoh cream to nipples ABDOMINAL INCISION: (if applicable) * Allow incision to air dry * Do NOT use lotions for powders on your incision * When showering, allow soap and water to run over the incision, but do not wash incision EPISIOTOMY/PERINEAL CARE: * Until bleeding stops, use your hieu bottle after urinating * Change your pad frequently throughout the day * You may take sitz baths several times a day (fill your bathtub with warm water and soak for 20 minutes.) Do NOT bathe in the water * No tub baths until seen by your physician - You may shower ACTIVITY: * Rest as much as possible. * Do not exercise or lift anything heavier than your baby (such as laundry or other children.) * Avoid stairs or driving as much as possible. * Do not put anything into the vagina. No douching, tampons, or sexual activity until seen by physician. NOTIFY PHYSICIAN IF YOU HAVE ANY QUESTIONS OR IF ANY OF THE FOLLOWING SYMPTOMS OCCUR: * If your vaginal bleeding becomes foul smelling. * If your vaginal bleeding becomes more heavy than a period or if your bleeding changes from pink to bright red. However, you may pass an occasional walnut-sized clot once or twice for the first week . * If you experience a sharp, shooting pain in you calves. * If you discover a hard, reddened area on your breast or if you experience flu-like symptoms. DIET: * Eat regular, well-balanced meals. * Drink plenty of fluids daily. If , drink to thirst. Patient Instructions: Antibiotic Form Stand Alone Forms: General Discharge Information Follow-up/Referrals: Henny Juarez MD [Physician] - Discharge Medications: New acetaminophen 500 mg tablet 500 mg PO Q6H PRN (Reason: pain) Qty: 30 0RF Continued [id number]
--- NOTE | 2022-08-30 20:40 | OBPPTRN ---
Patient transferred to post room #281 via wheelchair. Support person present. Oriented to unit, room, information board, rooming in, admission packet and security measures. Patient verbalizes understanding.
[2022-08-31 00:15] VITALS: BP 102/60; PULSE 93; RESP 16; TEMP 37.1; O2SAT 99
[2022-08-31] MEDS: IBUPROFEN 600 MG TABLET PO ×3 (03:06→16:00)
[2022-08-31 05:19] LABS: Hematocrit 29.6 % (37.0-47.0); Hemoglobin 9.6 g/dL (12.0-15.0)
--- NOTE | 2022-08-31 07:45 | PC.NURSE ---
PT introductions made and plan of care discussed per post , pain management, breast feeding and pending discharge to home. PT and mother both recipients of such instructions and no barriers to learning identified at this time. PT received such instructions per one to one discussion, mom baby care guide and demonstrations this shift. PT verbalized understanding of such care
[2022-08-31 08:10] VITALS: BP 88/64; PULSE 76; RESP 16; TEMP 37.2; O2SAT 99
--- NOTE | 2022-08-31 08:28 | PM.OBDSVD ---
DS: Admitting Diagnosis Discharge Date 08/31/22 Admitting Diagnosis intrauterine at term DS: Discharge Diagnosis Discharge Diagnosis (1) : Code(s): Z34.90 - Encounter for supervision of normal , unspecified, unspecified trimester Status: Acute OB - DS: Summary OB Procedures : None OB Procedures Intrapartum: Spontaneous Vag Delivery OB Procedures: : None Status at Discharge Functional status at discharge: independent ambulation Overall status at discharge: patient is back to baseline Time Spent with Patient Time attestation: Total time spent providing and/or coordinating discharge services: Time spent: Less than 30 minutes Exam Const: General: comfortable and no acute distress Resp: Effort & Inspection: normal respiratory effort Auscultation: clear to auscultation bilaterally Cardio: Rate: regular rate GI: GI Palp: Yes Soft to palpation Auscultation: normal bowel sounds Other: Fundus firm below umbilicus Psych: Appearance: grossly normal Mental Status: mental status grossly normal Affect: normal affect DS: Data Data Completed and Pending Labs on day of discharge: Labs from last 24 hours 08/31/22 08/29/22 05:02 17:10 Hgb 9.6 L Hct 29.6 L RPR Non-reactive Discharge Plan Discharge Attending physician on discharge: Henny Juarez Discharging Clinician: Alvaro Jaime Anticipated Discharge Date/Time: 09/01/22 18:30 Patient Disposition: Home, Self-Care Activity: may shower and pelvic rest Diet: regular Patient Instructions: Antibiotic Form Stand Alone Forms: General Discharge Information Follow-up/Referrals: Henny Juarez MD [Physician] - Discharge Medications: New acetaminophen 500 mg tablet 500 mg PO Q6H PRN (Reason: pain) Qty: 30 0RF Continued Daily 28-800-440 mg-mcg-mg Combo Pack 1 pkg PO DAILY Claritin-D 12 Hour 5-120 mg tablet extended release 12 hr 1 tablet PO Q12H Qty: 30 0RF ergocalciferol (vitamin D2) [Vitamin D2] 50,000 unit Capsule 50,000 unit PO WEEKLY Rx Instructions: tuesday Date of admission: 08/29/22 16:42 Primary Care Provider: Francis Hamilton Admitting Provider: Henny Juarez Attending physician on admission: Henny Juarez Condition: Stable
[2022-08-31] MEDS: ACETAMINOPHEN 325 MG TABLET 650 MG PO ×2 (09:12→15:59)
[2022-08-31] MEDS: DOCUSATE SODIUM 100 MG CAPSULE PO ×2 (09:14→16:00)
[2022-08-31] MEDS: MULTIVIT/MIN/PREN/FOL AC/IRON TABLET 1 TAB PO (09:14)
[2022-08-31] MEDS: POLYSACCHARIDE IRON COMPLEX 150 MG CAPSULE PO ×2 (09:15→16:01)
[2022-08-31] MEDS: LANOLIN (LANSINOH) 7.5 GM CREAM 1 APPLIC TOPICAL (09:15)
--- NOTE | 2022-08-31 12:01 | PC.NURSE ---
[id number] Mother verbalizes she is able to independently latch with appropriate positioning/alignment. She denies any nipple discomfort and is responsively . is currently meeting outcomes for weight, output, jaundice and feeding frequencies of 8-12 times in 24 hours. Mother declines any additional assistance/education at this time. Mother is encouraged to call for assistance if her doesn?t latch or there is discomfort with latching. Mother voiced understanding of information shared and the mom reminded of the mom/baby guide for an additional resource.
--- NOTE | 2022-08-31 13:29 | WPDANLDPN2 ---
Anes-Prog Note L&D Date/Time: 08/31/22 13:29 Comfortable throughout: labor and delivery Neuraxial method: epidural Epidural/Spinal procedure site: tender Neuro status: Neuro function grossly intact. Cardiovascular status: normal Respiratory status: normal Airway patency: baseline Mental status: baseline Post-Op hydration status: normal Vital Signs: Last Vital Signs Temp 98.9 F 08/31/22 08:10 Pulse 76 08/31/22 08:10 Resp 16 08/31/22 08:10 BP 88/64 L 08/31/22 08:10 Pulse Ox 99 08/31/22 08:10 O2 Del Method Room Air 08/30/22 21:15 Pain score (VAS): 0 I/O: Intake & Output 08/30/22 08/31/22 08/31/22 23:59 07:59 15:59 Intake Total 1050 480 Output Total 50 Balance 1000 480 Post-procedural complaints: none Patient feedback: Patient satisfied with anesthetic care.
[2022-09-03 11:38] VITALS: BP 99/68; PULSE 93; RESP 18; TEMP 36.8; O2SAT 100
== END 2022-08-31 19:45 | disposition home or self-care (01) | DRG 807 ==
LOC: ANHLDR 08-30 18:31 → ANHOB2 08-31 18:39 → ANHLDR 09-02 07:33 → ANHOB2 09-02 07:33
PROVIDERS: Admitting Provider Obstetrics & Gynecology Gynecology; PCP Family Medicine; Visit Provider Student in an Organized Health Care Education/Training Program
DX: O99.824 Streptococcus B carrier state complicating childbirth (principal); Z37.0 Single live birth; Z3A.39 39 weeks gestation of pregnancy; O99.02 Anemia complicating childbirth; D64.9 Anemia, unspecified; O69.81X0 Labor and delivery complicated by cord around neck, without compression, not applicable or unspecified
CPT/HCPCS: 36415; 85014; 85018; 85025; 86592; 86850; 86900; 86901; 88307; A9270; J0290; J2590; J2795; J7030; J7120